=== PATIENT | male | born 1960 | race Hispanic/Latino ===

== ENCOUNTER → 2019-10-13 | Outpatient (CLI) | payer BC | END | disposition home or self-care (01) | LOC: RAH 08:37 | PROVIDERS: ATTEND Internal Medicine | DX: K76.0 Fatty (change of) liver, not elsewhere classified (principal); K80.20 Calculus of gallbladder without cholecystitis without obstruction | CPT/HCPCS: 76700 ==

== ENCOUNTER → 2023-11-18 | Outpatient (CLI) | payer OTHER | END | disposition home or self-care (01) | LOC: RAH 14:42 | PROVIDERS: ATTEND Internal Medicine | DX: Z13.6 Encounter for screening for cardiovascular disorders (principal) | CPT/HCPCS: 75571 ==

== ENCOUNTER → 2023-12-23 | Outpatient (CLI) | payer BC ==
[2023-12-23 12:47] LABS: ALBUMIN 3.8 g/dL (3.5-5.0); BILIRUBIN,TOTAL 0.8 mg/dL (0.2-1.0); POTASSIUM 3.9 mmol/L (3.5-5.1)
== END | disposition home or self-care (01) ==
LOC: LAB 10:05
PROVIDERS: ATTEND Internal Medicine Cardiovascular Disease
DX: R07.9 Chest pain, unspecified (principal)
CPT/HCPCS: 36415; 80053; 80061; 82306

== ENCOUNTER → 2024-01-09 | Outpatient (CLI) | payer BC | END | disposition home or self-care (01) | LOC: SHCH 15:09 | PROVIDERS: ATTEND Internal Medicine Cardiovascular Disease | DX: I08.8 Other rheumatic multiple valve diseases (principal); R07.9 Chest pain, unspecified; E78.5 Hyperlipidemia, unspecified; I10 Essential (primary) hypertension | CPT/HCPCS: 93306 ==